=== PATIENT | male | born 1990 | race Caucasian/White ===

== ENCOUNTER 2020-09-03 03:13 | Emergency (ER) | payer BC, SELFPAY ==
--- NOTE | ~2020-09-03 | XR_ITS ---
EXAMINATION: XR chest 2V DATE: 09/03/2020 04:54 INDICATION: Cough. TECHNIQUE: Frontal and lateral views of the chest were obtained. COMPARISON: None. FINDINGS: The chest demonstrates clear lungs without pneumonia, pleural effusion, or pneumothorax. Th e heart size is normal. IMPRESSION: 1. No acute cardiopulmonary disease. Reviewed, dictated and finalized at location A.
[2020-09-03 03:18] VITALS: BP 154/90; PULSE 97; RESP 20; TEMP 36.2; O2SAT 100
--- NOTE | 2020-09-03 03:30 | ED.ANXIETY ---
HPI - Anxiety General Chief Complaint: Anxiety Stated Complaint: Anxiety attack Time Seen by Provider: 09/03/20 03:24 Source: patient Mode of arrival: ambulatory Limitations: no limitations History of Present Illness HPI narrative: Patient is a 30-year-old male complaining of panic attack , described as nausea and vomiting, not feeling well, shaky, having anxiety due to his upcoming vacation this Monday to [place], I am scared of flying . Patient also admits to getting drunk last night which could also attribute to his current anxiety state. Patient denies any chest pain, shortness of breath abdominal pain, fever or chills. Patient denies any suicidal homicidal thoughts. Related Data Allergies Allergy/AdvReac Type Severity Reaction Status Date / Time No Known Allergies Allergy Verified 09/03/20 03:14 Review of Systems Review of Systems: All systems reviewed & are unremarkable except as noted in HPI and below Constitutional: Constitutional: Denies body ache(s), Denies chills, Denies excessive sweating, Denies fatigue, Denies fever(s), Denies headache(s), Denies lethargy, Denies malaise, Denies weakness and Denies weight loss Eyes: Eyes: Denies blurry vision, Denies change in vision and Denies loss of vision ENT: Denies dizziness, Denies ear discharge, Denies headache(s), Denies lip swelling, Denies epistaxis, Denies nasal congestion, Denies neck pain, Denies throat swelling and Denies tongue swelling Cardiovascular: Cardiovascular: Denies chest pain, Denies chest pain at rest, Denies chest pain with activity, Denies diaphoresis, Denies rapid heart rate, Denies edema, Denies irregular heart rhythm, Denies lightheadedness, Denies palpitations, Denies dyspnea and Denies dyspnea on exertion Respiratory: Respiratory: Denies chest congestion, Denies cough, Denies hemoptysis, Denies dyspnea and Denies dyspnea on exertion Gastrointestinal: Gastrointestinal: Denies abdominal pain, Denies melena, Denies hematochezia, Denies diarrhea and Denies hematemesis Musculoskeletal: Musculoskeletal: Denies abnormal gait, Denies deformity, Denies joint swelling, Denies limited range of motion, Denies neck pain and Denies numbness Neurologic: Denies Abnormal speech present, Denies abnormal gait, Denies confusion, Denies dizziness, Denies headache(s), Denies focal weakness, Denies loss of vision, Denies numbness, Denies Other visual disturbances, Denies Sensory deficit (Neuro) and Denies weakness Psychiatric: Psychiatric: Denies confusion, Denies depression, Denies auditory hallucinations, Denies homicidal ideation and Denies suicidal ideation Endocrine: Endocrine: Denies cold intolerance, Denies excessive sweating, Denies fatigue, Denies heat intolerance and Denies palpitations Hematologic/Lymphatic: Hematologic/Lymphatic: Denies easy bleeding and Denies easy bruising Allergic/Immunologic: Allergic/Immunologic: Denies lip swelling, Denies throat swelling and Denies tongue swelling PMFSH Comments Past medical history: None Family history: Negative for coronary disease or MT. Social history: Non-smoker no EtOH or drug use Exam Const: General: cooperative, healthy appearing, comfortable, no acute distress, well developed, alert and awake; No confusion Orientation/consciousness: oriented to person, oriented to place, oriented to time, patient oriented x3 and No confusion Limitations: no limitations Other: Anxious HENMT: Head: normal to inspection, normocephalic and atraumatic Ears: hearing grossly normal bilaterally, TM normal on the right and TM normal on the left General nose exam: Normal external nose present, Normal nares present and No nasal discharge present Face and sinus: normal facial exam Mouth: Yes Normal oral and palatal mucosa present, Yes lip normal, Yes tongue normal and Yes oropharynx normal Throat: posterior oropharynx normal, tonsils normal and uvula midline Eyes: General: appearance normal, both eyes and all related structures Pup
[2020-09-03] MEDS: LORazepam (*CRX) 1 MG TABLET PO (03:36)
[2020-09-03 04:48] LABS: Basophils Absolute Auto 0.1 K/mm3 (0.0-0.1); Basophils Percent Auto 0.6 % (0.2-1.2); Eosinophils Percent Auto 0.4 % (0-4.4); Hematocrit 44.1 % (42.0-52.0); Hemoglobin 15.4 g/dL (14.0-18.0); Immature Granulocyte Absolute 0.03 K/mm3 (0.00-0.031); Immature Granulocyte Percent A 0.3 % (0-0.5); Lymphocytes Absolute Auto 1.68 K/mm3 (0.9-3.2); Lymphocytes Percent Auto 16.6 % (18.3-44.2); Mean Corpuscular HGB Conc 34.9 g/dl (32-36); Mean Corpuscular Volume 88.9 fl (80-100); Mean Platelet Volume 10.1 fl (7.4-10.4); Monocytes Absolute Auto 0.8 K/mm3 (0.1-0.6); Monocytes Percent Auto 8.1 % (2.6-8.5); Neutrophils Absolute Auto 7.5 K/mm3 (1.3-6.7); Platelet Count Result 247 k/mm3 (150-375); Red Blood Count 4.96 M/mm3 (4.6-6.20); Red Cell Distribution Width 12.4 % (11.5-14.5); White Blood Count 10.1 K/mm3 (4.5-10.0)
[2020-09-03 05:00] LABS: Lipase 44 U/L (23-300)
[2020-09-03 05:21] LABS: Troponin I < 0.012 ng/mL (0.000-0.034)
--- NOTE | 2020-09-03 05:24 | ECG_ITS ---
Measurements Intervals [place] Rate: 72 P: 74 [place]: 159 QRS: 46 QRSD: 93 T: 50 QT: 407 QTc: 448 Interpretive Statements SINUS RHYTHM NORMAL ECG Electronically Signed On 09-03-2020 7:17:11 CDT by Oswaldo Omalley D.O.
[2020-09-03 05:30] VITALS: BP 143/87; PULSE 88; RESP 18; O2SAT 99
[2020-09-03 06:05] VITALS: BP 141/83; PULSE 86; RESP 16; TEMP 36.7; O2SAT 98
== END 2020-09-03 06:05 | disposition home or self-care (01) ==
PROVIDERS: Emergency Provider Emergency Medicine; PCP Family Medicine
DX: F41.9 Anxiety disorder, unspecified (principal)
CPT/HCPCS: 36415; 71046; 83690; 84484; 85025; 93005; 99284; A9270

== ENCOUNTER 2021-06-11 00:29 | Emergency (ER) | payer BC, SELFPAY ==
[2021-06-11 00:35] VITALS: BP 171/107; PULSE 113; RESP 22; TEMP 36.6; O2SAT 99
--- NOTE | 2021-06-11 00:42 | ECG_ITS ---
Measurements Intervals [place] Rate: 87 P: 52 [place]: 153 QRS: 51 QRSD: 104 T: 57 QT: 390 QTc: 472 Interpretive Statements SINUS RHYTHM WITH SINUS ARRHYTHMIA NORMAL ECG Electronically Signed On 06-11-2021 6:49:56 [employer] by Oswaldo Omalley D.O.
[2021-06-11 01:01] LABS: Basophils Absolute Auto 0.1 K/mm3 (0.0-0.1); Basophils Percent Auto 0.5 % (0.2-1.2); Eosinophils Absolute Auto 0.1 K/mm3 (0-0.3); Eosinophils Percent Auto 1.1 % (0-4.4); Hematocrit 43.6 % (42.0-52.0); Hemoglobin 14.9 g/dL (14.0-18.0); Immature Granulocyte Absolute 0.03 K/mm3 (0.00-0.031); Immature Granulocyte Percent A 0.3 % (0-0.5); Lymphocytes Absolute Auto 2.65 K/mm3 (0.9-3.2); Lymphocytes Percent Auto 26.4 % (18.3-44.2); Mean Corpuscular HGB Conc 34.2 g/dl (32-36); Mean Corpuscular Hemoglobin 31.6 pg (26-34); Mean Corpuscular Volume 92.4 fl (80-100); Mean Platelet Volume 9.8 fl (7.4-10.4); Monocytes Absolute Auto 0.8 K/mm3 (0.1-0.6); Monocytes Percent Auto 7.6 % (2.6-8.5); Neutrophils Absolute Auto 6.4 K/mm3 (1.3-6.7); Neutrophils Percent Auto 64.1 % (45.5-73.1); Platelet Count Result 256 k/mm3 (150-375); Red Blood Count 4.72 M/mm3 (4.6-6.20)
[2021-06-11 01:09] LABS: Ethanol < 10 mg/dL (<10)
[2021-06-11 01:11] LABS: Alanine Aminotransferase 32 U/L (4-50); Albumin Level 4.4 g/dL (3.5-5.1); Alkaline Phosphatase 86 U/L (38-126); Anion Gap 11 mmol/L (8-16); Aspartate Amino Transferase 50 U/L (17-59); Blood Urea Nitrogen 12 mg/dL (9-20); Calcium 8.9 mg/dL (8.4-10.2); Carbon Dioxide 24 mmol/L (22-30); Chloride 99 mmol/L (98-107); Estimated CRCL calculation 152 ml/min; Estimated Glomerular Filt Rate > 60; Glucose 102 mg/dL (65-110); Potassium 3.1 mmol/L (3.4-5.0); Sodium 134 mmol/L (137-145)
[2021-06-11] MEDS: THIAMINE HCL INJ 100 MG, FOLIC ACID INJ 1 MG, MULTIVITAMINS-12 INJ VIAL 1 5 ML, MULTIVI... IV CONT (01:11)
[2021-06-11 01:17] LABS: INR 1.2; Prothrombin Time 14.6 Seconds (11.1-14.7)
[2021-06-11 01:18] LABS: Partial Thromboplastin Time 25.7 SECONDS (22.3-36.8)
--- NOTE | 2021-06-11 01:21 | ED.GENADULT ---
HPI - General Adult General Chief complaint: Altered Mental Status Stated complaint: AMS Time Seen by Provider: 06/11/21 00:43 Source: patient Mode of arrival: ambulatory Limitations: no limitations History of Present Illness HPI narrative: Patient is a 31-year-old male complaining of I do not feel right describes feeling anxious, shaking, unable to sleep tonight. Patient denies any headache, dizziness, speech or visual disturbance, focal weakness or numbness, unsteady gait, chest pain, shortness of breath, abdominal pain, nausea, vomiting, diarrhea, fever or chills. Patient admits to chronic alcohol use, drinks approximately 10-15 drinks per day since he was 20 years old. Patient states the last time he had drink was last night. Related Data Allergies Allergy/AdvReac Type Severity Reaction Status Date / Time No Known Allergies Allergy Verified 09/03/20 03:14 Review of Systems Review of Systems: All systems reviewed & are unremarkable except as noted in HPI and below Constitutional: Constitutional: Denies body ache(s), Denies chills, Denies excessive sweating, Denies fatigue, Denies fever(s), Denies headache(s), Denies lethargy, Denies malaise, Denies weakness and Denies weight loss Eyes: Eyes: Denies blurry vision, Denies change in vision and Denies loss of vision ENT: Denies dizziness, Denies ear discharge, Denies headache(s), Denies lip swelling, Denies epistaxis, Denies nasal congestion, Denies neck pain, Denies throat swelling and Denies tongue swelling Cardiovascular: Cardiovascular: Denies chest pain, Denies chest pain at rest, Denies chest pain with activity, Denies diaphoresis, Denies rapid heart rate, Denies edema, Denies irregular heart rhythm, Denies lightheadedness, Denies palpitations, Denies dyspnea and Denies dyspnea on exertion Respiratory: Respiratory: Denies chest congestion, Denies cough, Denies hemoptysis, Denies dyspnea and Denies dyspnea on exertion Gastrointestinal: Gastrointestinal: Denies abdominal pain, Denies melena, Denies hematochezia, Denies diarrhea, Denies nausea, Denies vomiting and Denies hematemesis Musculoskeletal: Musculoskeletal: Denies abnormal gait, Denies deformity, Denies joint swelling, Denies limited range of motion, Denies neck pain and Denies numbness Neurologic: Denies Abnormal speech present, Denies abnormal gait, Denies confusion, Denies dizziness, Denies headache(s), Denies focal weakness, Denies loss of vision, Denies numbness, Denies Other visual disturbances, Denies Sensory deficit (Neuro) and Denies weakness Psychiatric: Psychiatric: Denies confusion, Denies depression, Denies auditory hallucinations, Denies homicidal ideation and Denies suicidal ideation Endocrine: Endocrine: Denies cold intolerance, Denies excessive sweating, Denies fatigue, Denies heat intolerance and Denies palpitations Hematologic/Lymphatic: Hematologic/Lymphatic: Denies easy bleeding and Denies easy bruising Allergic/Immunologic: Allergic/Immunologic: Denies lip swelling, Denies throat swelling and Denies tongue swelling PMFSH Comments Past medical history: Alcoholism Family history: Unknown Social history: Positive for smoker, no drug use, daily EtOH use Exam Const: General: cooperative, healthy appearing, comfortable, no acute distress, well developed, alert and awake; No confusion Orientation/consciousness: oriented to person, oriented to place, oriented to time, patient oriented x3 and No confusion Limitations: no limitations Other: Anxious HENMT: Head: normal to inspection, normocephalic and atraumatic Ears: hearing grossly normal bilaterally, TM normal on the right and TM normal on the left General nose exam: Normal external nose present, Normal nares present and No nasal discharge present Face and sinus: normal facial exam Mouth: Yes Normal oral and palatal mucosa present, Yes lip normal, Yes tongue normal and Yes oropharynx normal Throat: posterior oropharynx normal, tonsils normal and uv
[2021-06-11] MEDS: LORazepam INJ (*CRX) 2 MG/ML VIAL 1 MG IV PUSH (01:37)
[2021-06-11] MEDS: POTASSIUM CHLORIDE 20 MEQ PACKET (FOR LIQUID) 40 MEQ PO (01:38)
[2021-06-11 01:42] VITALS: BP 157/101; PULSE 71; RESP 18; O2SAT 100
[2021-06-11] MEDS: LORazepam (*CRX) 1 MG TABLET PO (02:19)
[2021-06-11 02:20] VITALS: BP 141/90; PULSE 91; RESP 18; O2SAT 96
[2021-06-11 04:43] VITALS: BP 129/99; PULSE 65; RESP 18
[2021-06-11 06:08] VITALS: BP 139/101; PULSE 66; RESP 20; O2SAT 99
== END 2021-06-11 06:21 | disposition home or self-care (01) ==
PROVIDERS: Emergency Provider Emergency Medicine; PCP Family Medicine
DX: F10.239 Alcohol dependence with withdrawal, unspecified (principal); E87.6 Hypokalemia; F17.200 Nicotine dependence, unspecified, uncomplicated; Y90.0 Blood alcohol level of less than 20 mg/100 ml
CPT/HCPCS: 36415; 80053; 80307; 85025; 85610; 85730; 93005; 96365; 96366; 96375; 99284; A9270; J2060; J3411; J3475; J7121

== ENCOUNTER 2021-08-20 13:14 | Inpatient (IN) | payer BC, SELFPAY ==
[2021-08-20] VITALS (18 sets, daily range): BP systolic 137–159; BP diastolic 96–115; PULSE 53–87; RESP 15–30; TEMP 36.1–36.7; O2SAT 96–100; BMI 35.4
--- NOTE | ~2021-08-20 | CT_ITS ---
EXAMINATION: CT abdomen pelvis w con INDICATION: Abdominal pain, history of pancreatitis TECHNIQUE: Computed tomographic images of the abdomen and pelvis were obtained after the administrati on of 100 cc of Omnipaque 350 intravenous contrast. The dose-length product (DLP) was 1120.95 mGy-cm. Automated exposure control and iterative reconstruction technique were employed. COMPARISON: None available FINDINGS: The lung bases are clear. The heart size is normal. The liver, spleen, and adrenal glands a re normal. There is diffuse edema of the pancreas. There is peripancreatic fluid probably surrounding the head and body of the pancreas and tracking into right anterior perirenal space. The gallbladder is mildly distended. The kidneys are unremarkable. No pathologically enlarged abdominal or pelvic lym ph nodes are identified. There is no free intraperitoneal gas or evidence of bowel obstruction. The a ppendix is normal. IMPRESSION: 1. Findings consistent with acute pancreatitis, likely interstitial edematous. Mild gallbladder diste ntion is likely secondary to pancreatitis. Reviewed, dictated and finalized at location A. IMPRESSION: 1. Findings consistent with acute pancreatitis, likely interstitial edematous. Mild gallbladder distention is likely secondary to pancreatitis.
[2021-08-20 13:31] LABS: Basophils Percent Auto 0.5 % (0.2-1.2); Eosinophils Absolute Auto 0.1 K/mm3 (0-0.3); Eosinophils Percent Auto 0.8 % (0-4.4); Hematocrit 48.2 % (42.0-52.0); Hemoglobin 16.3 g/dL (14.0-18.0); Immature Granulocyte Absolute 0.02 K/mm3 (0.00-0.031); Immature Granulocyte Percent A 0.2 % (0-0.5); Lymphocytes Absolute Auto 1.34 K/mm3 (0.9-3.2); Lymphocytes Percent Auto 15.1 % (18.3-44.2); Mean Corpuscular HGB Conc 33.8 g/dl (32-36); Mean Corpuscular Hemoglobin 30.6 pg (26-34); Mean Corpuscular Volume 90.4 fl (80-100); Mean Platelet Volume 9.9 fl (7.4-10.4); Monocytes Absolute Auto 0.7 K/mm3 (0.1-0.6); Monocytes Percent Auto 7.5 % (2.6-8.5); Neutrophils Absolute Auto 6.7 K/mm3 (1.3-6.7); Neutrophils Percent Auto 75.9 % (45.5-73.1); Platelet Count Result 207 k/mm3 (150-375); Red Blood Count 5.33 M/mm3 (4.6-6.20); Red Cell Distribution Width 12.5 % (11.5-14.5); White Blood Count 8.9 K/mm3 (4.5-10.0)
[2021-08-20 13:40] LABS: Alanine Aminotransferase 34 U/L (4-50); Albumin Level 4.8 g/dL (3.5-5.1); Alkaline Phosphatase 86 U/L (38-126); Anion Gap 9 mmol/L (8-16); Aspartate Amino Transferase 51 U/L (17-59); Bilirubin,Total 2.4 mg/dL (0.2-1.3); Blood Urea Nitrogen 10 mg/dL (9-20); Calcium 9.2 mg/dL (8.4-10.2); Carbon Dioxide 27 mmol/L (22-30); Chloride 99 mmol/L (98-107); Estimated CRCL calculation 154 ml/min; Estimated Glomerular Filt Rate > 60; Glucose 112 mg/dL (65-110); Lipase 1251 U/L (23-300); Sodium 135 mmol/L (137-145)
--- NOTE | 2021-08-20 13:58 | ED.ABDPAIN ---
HPI - Abdominal Pain General Chief Complaint: Abdominal Pain Stated Complaint: abd pain Time Seen by Provider: 08/20/21 13:22 Source: patient and RN notes reviewed Mode of arrival: ambulatory Limitations: no limitations History of Present Illness HPI narrative: This is a 31 year old male with history of alcohol abuse and pancreatitis who presents for evaluation of abdominal pain. He developed pain yesterday . He states his pain is constant ache that is located across his upper abdomen. He has taken Pepto and ibuprofen without relief. He denies nausea and vomiting. He is having loose stools. He was diagnosed with pancreatitis in March and he was told it is due to his alcohol use. He drinks alcohol 6 out of 7 days a week. He last drank last night. He denies history of alcohol withdrawal. He reports his pain severity is 7/10. Related Data Home Medications Medication Instructions Recorded Confirmed esomeprazole magnesium [Nexium] 40 mg PO DAILY 08/20/21 08/20/21 Allergies Allergy/AdvReac Type Severity Reaction Status Date / Time No Known Allergies Allergy Verified 08/20/21 13:32 Review of Systems Review of Systems: All systems reviewed & are unremarkable except as noted in HPI and below PMFSH Past Medical History Medical History (Updated 08/20/21 @ 19:03 by Jen Jennings MD) Pancreatitis Surgical History Surgical History (Updated 08/20/21 @ 14:12 by Jen Jennings MD) No pertinent past surgical history Social History Social History (Updated 08/20/21 @ 16:51 by ABDIEL Dai) Social History: Patient lives in a basement. He was to be a full code at this time and his surrogate decision maker will be Yogi Jeannie. he does not have any pets. 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 Patient is a heavy drinker. patient stated that his dad recently has from liver failure which has exacerbated his drinking. 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 [employer] Gender identity (if verbalized by the patient): Male Sexual Orientation (if Verbalized by the Patient): Straight or Heterosexual Spiritual care concerns: No Agree to blood products: Yes Exam Const: General: no acute distress and alert Orientation/consciousness: patient oriented x3 Eyes: EOM: EOMs intact bilaterally Chest: Chest palpation & inspection: normal inspection of the chest Resp: Effort & Inspection: normal respiratory effort and no retractions Auscultation: clear to auscultation bilaterally Cardio: Rate: regular rate Rhythm: regular rhythm Heart sounds: no murmurs GI: GI Palp: Yes Soft to palpation, Yes Tenderness to palpation present (GI), No Guarding due to palpation present (GI) and No Rigid due to palpation Auscultation: normal bowel sounds Skin: General skin exam: normal color Neuro: General: patient oriented x3, moves all extremities and CN's II-XI intact bilaterally Psych: Mental Status: mental status grossly normal Affect: normal affect Course Reevaluation(s) Reevaluation #1: Patient understand he will be admitted. He states his pain is still 6/10 after pain medication. He agrees to admission. Date: 08/20/21 Time: 15:30 Consultations Consultation #1: I discussed case with DR. Russell. He accepts patient for pancreatitis. He will place alcohol withdrawal protocol on floor Date: 08/20/21 Time: 15:19 Vital Signs Vital signs: Vi
[2021-08-20] MEDS: ONDANSETRON INJ 4 MG/2 ML VIAL IV PUSH (14:18)
[2021-08-20] MEDS: HYDROmorphone HCL INJ (*CRX) 1 MG/ML SYR IV PUSH ×2 (14:18→21:00)
[2021-08-20] MEDS: SODIUM CHLORIDE 0.9% IV 1,000 ML 999 ML IV CONT (14:19)
[2021-08-20 14:43] LABS: Mucus Urine Rare /lpf; WBC Urine 0-3 /hpf
[2021-08-20 14:57] LABS: Add Urine Microscopic? YES; Appearance Urine Clear (Clear); Bilirubin Urine Negative (Negative); Blood Urine Trace-lysed (Negative); Color Urine Yellow (Yellow); Glucose Urine UA Negative (Negative); Ketones Urine Negative (Negative); Leukocyte Esterase Ur Negative LEU/UL (Negative); Nitrate Urine Negative (Negative); Protein Urine Negative (Negative); Urobilinogen Urine 0.2 mg/dL (<2.0); pH Urine 8.5 (5.0-9.0)
[2021-08-20] MEDS: HYDROmorphone HCL INJ (*CRX) 1 MG/ML SYR (15:58)
--- NOTE | 2021-08-20 16:11 | PM.IMHP ---
H&P: HPI History of Present Illness Date/Time: 08/20/21 16:11 Chief Complaint: epigastric pain Narrative: patient is a 31-year-old male with a past medical history of pancreatitis and alcohol abuse who presented to ED with complaints of epigastric pain that started afternoon. Patient was unable to sleep since having it started. He did try to take some Pepto and some Nexium with no relief. He stated that he knows he is was not supposed to have anything to drink however he did have a small drink which did not help his symptoms either. He denies any nausea, vomiting, chest pain, shortness a breath, sweats, fevers, chills, dizziness, headache, visual disturbances. He did state that he has been feeling very weak and experiencing some body aches. I did discuss with him about his blood pressure and he stated that his blood pressure has usually been pretty good however he does know that is something he probably needs to explore. I did go over with the patient about signs and symptoms of withdrawal. I explained to the patient seems to be open and honest with symptoms he may be feeling. patient is being admitted to the hospitalist service as inpatient Review of Systems Review of Systems: All systems reviewed & are unremarkable except as noted in HPI and below PMFSH Past Medical History Medical History (Updated 08/20/21 @ 16:14 by ABDIEL Dai) Pancreatitis Surgical History Surgical History (Updated 08/20/21 @ 14:12 by Jen Jennings MD) No pertinent past surgical history Social History Social History (Updated 08/20/21 @ 16:51 by ABDIEL Dai) Social History: Patient lives in a basement. He was to be a full code at this time and his surrogate decision maker will be Yogi Dennis. he does not have any pets. 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 Patient is a heavy drinker. patient stated that his dad recently has from liver failure which has exacerbated his drinking. 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 [employer] Gender identity (if verbalized by the patient): Male Sexual Orientation (if Verbalized by the Patient): Straight or Heterosexual Spiritual care concerns: No Agree to blood products: Yes Meds Home Medications and Allergies Home Medications Medication Instructions Recorded Confirmed Type esomeprazole magnesium [Nexium] 40 mg PO DAILY 08/20/21 08/20/21 History Allergies Allergy/AdvReac Type Severity Reaction Status Date / Time No Known Allergies Allergy Verified 08/20/21 13:32 Vital Signs Vital Signs - 24 hr 08/20/21 13:18 08/20/21 14:01 08/20/21 14:38 Temperature 96.9 F L Pulse Rate 76 66 76 Respiratory Rate 16 30 H 18 Blood Pressure 159/115 H 147/105 H Pulse Oximetry 100 100 99 08/20/21 14:45 Temperature Pulse Rate 75 Respiratory Rate 18 Blood Pressure Pulse Oximetry 99 Exam Const: General: cooperative, no acute distress, well developed, alert, awake, ill appearing, lethargic and tired appearing Nutritional Appearance: well nourished and overweight Orientation/consciousness: oriented to person, oriented to place, oriented to time and patient oriented x3 Limitations: no limitations HENMT: Head: normal to inspection Ears: hearing grossly normal bilaterally General nose exam: Normal external nose present Mouth: Yes Normal oral and palatal mucosa present, Yes li
--- NOTE | 2021-08-20 16:36 | PC.NURSE ---
hospitalist at bedside to assess pt.
[2021-08-20 16:59] LABS: Magnesium 1.7 mg/dL (1.6-2.3)
--- NOTE | 2021-08-20 17:17 | ADMGEN ---
This patient, Davey Jones, was admitted to [facility] Surg Room 329-01. Patient/family oriented to hospital policies and general routines including ID bracelet, bed and alarms, visiting hours, pain management, procedures, bathroom and other care routines, personal items, smoking policy, room service/diet, and visiting hours. Information on how to activate the Rapid Response Team has been discussed. Patient/Family are encouraged to report perceived risks to care and to ask questions if they do not understand what they are told or what they should do.
[2021-08-20] MEDS: SODIUM CHLORIDE 0.9% IV 1,000 ML 125 ML IV CONT (18:13)
[2021-08-20] MEDS: MORPHINE SULFATE (*CRX) 2 MG/ML INJ IV PUSH (18:21)
[2021-08-21] VITALS (7 sets, daily range): BP systolic 128–145; BP diastolic 91–98; PULSE 65–86; RESP 16–18; TEMP 36.2–36.8; O2SAT 98
[2021-08-21] MEDS: LORazepam INJ (*CRX) 2 MG/ML VIAL 1 MG IV PUSH (00:22)
[2021-08-21] MEDS: SODIUM CHLORIDE 0.9% IV 1,000 ML 125 ML IV CONT ×2 (02:56→10:26)
[2021-08-21] MEDS: HYDROmorphone HCL INJ (*CRX) 1 MG/ML SYR IV PUSH ×2 (02:57→08:02)
[2021-08-21 06:48] LABS: Basophils Percent Auto 0.4 % (0.2-1.2); Eosinophils Absolute Auto 0.3 K/mm3 (0-0.3); Eosinophils Percent Auto 4.6 % (0-4.4); Hematocrit 43.6 % (42.0-52.0); Immature Granulocyte Absolute 0.01 K/mm3 (0.00-0.031); Immature Granulocyte Percent A 0.1 % (0-0.5); Lymphocytes Absolute Auto 2.05 K/mm3 (0.9-3.2); Lymphocytes Percent Auto 30.3 % (18.3-44.2); Mean Corpuscular HGB Conc 34.4 g/dl (32-36); Mean Corpuscular Hemoglobin 31.1 pg (26-34); Mean Corpuscular Volume 90.3 fl (80-100); Mean Platelet Volume 10.7 fl (7.4-10.4); Monocytes Absolute Auto 0.6 K/mm3 (0.1-0.6); Neutrophils Absolute Auto 3.8 K/mm3 (1.3-6.7); Neutrophils Percent Auto 55.6 % (45.5-73.1); Platelet Count Result 172 k/mm3 (150-375); Red Blood Count 4.83 M/mm3 (4.6-6.20); Red Cell Distribution Width 12.4 % (11.5-14.5); White Blood Count 6.8 K/mm3 (4.5-10.0)
[2021-08-21 07:00] LABS: Alanine Aminotransferase 29 U/L (4-50); Albumin Level 4.3 g/dL (3.5-5.1); Alkaline Phosphatase 68 U/L (38-126); Anion Gap 9 mmol/L (8-16); Aspartate Amino Transferase 42 U/L (17-59); Bilirubin,Total 2.1 mg/dL (0.2-1.3); Blood Urea Nitrogen 6 mg/dL (9-20); Calcium 8.4 mg/dL (8.4-10.2); Carbon Dioxide 27 mmol/L (22-30); Chloride 99 mmol/L (98-107); Estimated CRCL calculation 153 ml/min; Estimated Glomerular Filt Rate > 60; Glucose 81 mg/dL (65-110); Lipase 894 U/L (23-300); Potassium 3.7 mmol/L (3.4-5.0); Sodium 135 mmol/L (137-145)
[2021-08-21] MEDS: FOLIC ACID 1 MG TABLET PO (08:02)
[2021-08-21] MEDS: ENOXAPARIN 40 MG/0.4 ML SYRINGE SUB-Q (08:02)
[2021-08-21] MEDS: THIAMINE HCL 100 MG TABLET PO (08:02)
--- NOTE | 2021-08-21 12:19 | PM.IMPN ---
Progress Note: A&P Assessment and Plan (1) Pancreatitis, alcoholic, acute: Qualifiers: Acute pancreatitis complication: unspecified Qualified Code(s): K85.20 - Alcohol induced acute pancreatitis without necrosis or infection Code(s): K85.20 - Alcohol induced acute pancreatitis without necrosis or infection Status: Acute Assessment and Plan: CT A/P Findings c/w acute pancreatitis 08/20: Lipase 1251, 08/21: 894 IV fluids, analgesics prn 08/21: clear liquids Trend labs (2) Alcohol abuse: Code(s): F10.10 - Alcohol abuse, uncomplicated Status: Acute Assessment and Plan: CIWA Librium and ativan Folic acid and thiamine Educated about entering MAT program (3) Hypertension: Qualifiers: Hypertension type: unspecified Qualified Code(s): I10 - Essential (primary) hypertension Code(s): I10 - Essential (primary) hypertension Status: Acute Assessment and Plan: BP reviewed and control adequate 08/21 Subjective Date/time seen: 08/21/21 12:19 Interval history: 08/21 visit: Pain decreased from 8/10 08/20 to 05/17 today. Epigastric. Tolerating ice chips. Wants to try clear liquids. Wants to go home 08/22. Denied n/v. Last drink 08/18 (2 days CERTIFIED MEDICAL ASST). 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 Admits to drinking more than 2 drinks per day on average. Review of Systems Review of Systems: All systems reviewed & are unremarkable except as noted in HPI and below Exam Narrative: HEENT: PERRL, sclerae nonicteric, pharyngeal mucosa pink and intact NECK: No JVD CHEST: Clear to auscultation. Normal effort. HEART: NL S1/S2, regular, no murmur ABDOMEN: BS+, soft, MILD EPIGASTRIC TENDERNESS, NO PALPABLE MASS EXTREMITIES: No cyanosis, edema, or clubbing NEUROLOGIC: CN intact and symmetric to inspection. MUSCULOSKELETAL: Tone and strength symmetric. PSYCH: Alert. Oriented to person, place, and time. Objective Data Vital Signs Vital Signs: Vital Signs - 24 hr 08/20/21 13:18 08/20/21 14:01 08/20/21 14:38 Temperature 96.9 F L Pulse Rate 76 66 76 Pulse Rate [Brachial] Respiratory Rate 16 30 H 18 Blood Pressure 159/115 H 147/105 H Pulse Oximetry 100 100 99 08/20/21 14:45 04/15/22 15:09 08/20/21 15:15 Temperature Pulse Rate 75 71 68 Pulse Rate [Brachial] Respiratory Rate 18 22 H 21 H Blood Pressure Pulse Oximetry 99 98 98 08/20/21 15:44 08/20/21 15:45 08/20/21 16:00 Temperature Pulse Rate 60 70 60 Pulse Rate [Brachial] Respiratory Rate 23 H 21 H 23 H Blood Pressure Pulse Oximetry 99 100 99 08/20/21 16:02 08/20/21 16:15 08/20/21 16:17 Temperature Pulse Rate 71 62 70 Pulse Rate [Brachial] Respiratory Rate 20 20 22 H Blood Pressure 143/101 H 152/106 H Pulse Oximetry 98 96 99 08/20/21 16:41 08/20/21 16:47 08/20/21 17:00 Temperature Pulse Rate 79 87 71 Pulse Rate [Brachial] Respiratory Rate 15 22 H 20 Blood Pressure Pulse Oximetry 98 99 99 08/20/21 17:17 08/20/21 17:52 08/20/21 22:00 Temperature 97.9 F 98.0 F Pulse Rate 53 L 66 Pulse Rate [Brachial] 53 L Respiratory Rate 18 17 Blood Pressure 150/96 H 137/99 H Pulse Oximetry 100 97 08/21/21 06:00 Temperature 97.6 F Pulse Rate 69 Pulse Rate [Brachial] Respiratory Rate 18 Blood Pressure 145/98 H Pulse Oximetry 98 Intake/Output Intake/Output: Intake & Output 08/18/21 08/19/21 08/20/21 08/21/21 23:59 23:59 23:59 23:59 Intake Total 1000 1900 Balance 1000 1900 Meds/Results Medications: Active Medications Generic Name Dose Route Start Last Admin Trade Name Freq PRN Reason Stop Dose Admin Acetaminophen 650 mg 08/20/21 16:53 Acetaminophen 325 Mg Tablet PO Q4H PRN Mild Pain (1-3) or Fever Hydrocodone Bitart/Acetaminophen 1 tab 08/20/21 15:35 Hydrocodone/Acetaminophen (*Crx) 5-325 Mg Tablet PO Q4H PRN Pain Rated 4-6 Hydrocodone Bitart/Acetaminophen 1 tab 08/20/21 16:53
[2021-08-21] MEDS: KCL 20MEQ/0.9% SOD CHL 1,000 ML 125 ML IV CONT (14:52)
[2021-08-22] VITALS: PULSE 75
[2021-08-22 04:00] VITALS: PULSE 80
[2021-08-22 05:38] VITALS: BP 140/91; PULSE 60; RESP 16; TEMP 36.2; O2SAT 100
[2021-08-22 05:56] LABS: Hematocrit 42.8 % (42.0-52.0); Hemoglobin 14.7 g/dL (14.0-18.0); Mean Corpuscular HGB Conc 34.3 g/dl (32-36); Mean Corpuscular Hemoglobin 30.8 pg (26-34); Mean Corpuscular Volume 89.7 fl (80-100); Mean Platelet Volume 10.6 fl (7.4-10.4); Platelet Count Result 159 k/mm3 (150-375); Red Blood Count 4.77 M/mm3 (4.6-6.20); White Blood Count 5.5 K/mm3 (4.5-10.0)
[2021-08-22 06:05] LABS: Alanine Aminotransferase 29 U/L (4-50); Alkaline Phosphatase 72 U/L (38-126); Anion Gap 8 mmol/L (8-16); Aspartate Amino Transferase 46 U/L (17-59); Bilirubin,Total 1.2 mg/dL (0.2-1.3); Blood Urea Nitrogen 4 mg/dL (9-20); Calcium 8.6 mg/dL (8.4-10.2); Carbon Dioxide 26 mmol/L (22-30); Chloride 102 mmol/L (98-107); Estimated CRCL calculation 174 ml/min; Estimated Glomerular Filt Rate > 60; Glucose 86 mg/dL (65-110); Lipase 310 U/L (23-300); Magnesium 1.8 mg/dL (1.6-2.3); Sodium 136 mmol/L (137-145)
[2021-08-22] MEDS: FOLIC ACID 1 MG TABLET PO (09:00)
[2021-08-22] MEDS: KCL 20MEQ/0.9% SOD CHL 1,000 ML 125 ML IV CONT ×2 (09:00)
[2021-08-22] MEDS: THIAMINE HCL 100 MG TABLET PO (09:00)
[2021-08-22] MEDS: ENOXAPARIN 40 MG/0.4 ML SYRINGE SUB-Q (09:01)
--- NOTE | 2021-08-22 12:51 | PM.DS ---
DS: Admitting Diagnosis Discharge Date Patient was seen and examined on August 22, 2021 Admitting Diagnosis Acute alcohol-induced pancreatitis DS: Discharge Diagnosis Discharge Diagnosis (1) Pancreatitis, alcoholic, acute: Qualifiers: Acute pancreatitis complication: unspecified Qualified Code(s): K85.20 - Alcohol induced acute pancreatitis without necrosis or infection Code(s): K85.20 - Alcohol induced acute pancreatitis without necrosis or infection Status: Acute Assessment and Plan: CT A/P Findings c/w acute pancreatitis 08/20: Lipase 1251, 08/21: 894 IV fluids, analgesics prn 08/21: clear liquids 08/22: Tolerated advance from full liquids to regular bland w/o sx's (2) Alcohol abuse: Code(s): F10.10 - Alcohol abuse, uncomplicated Status: Acute Assessment and Plan: CIWA Librium and ativan Folic acid and thiamine Educated about entering MAT program (3) Hypertension: Qualifiers: Hypertension type: unspecified Qualified Code(s): I10 - Essential (primary) hypertension Code(s): I10 - Essential (primary) hypertension Status: Acute Assessment and Plan: BP reviewed and control adequate 08/21 DS: Summary Hospital Course Reason for hospitalization: Abdominal pain Hospital Course: Admitted with abdominal pain lipase was elevated CT abdomen pelvis was consistent with acute interstitial pancreatitis. Patient was treated with bowel rest antiemetics analgesics and IV fluid. His lipase decreased 1200 range to 800 range to 300 range over the ensuing days from admission. He tolerated ice chips a 2nd day of hospitalization and was advanced from full liquids to bland regular low-fat diet on the day of discharge. He tolerated this well. His abdomen is once nontender. Bowel sounds were present and he wished to go home. Total bilirubin is elevated 2.4 at admission and normalized to 1.2 on day of discharge. Patient was given information outpatient treatment programs for alcohol abuse. He pledged to avoid drinking and to follow up ELAINE with 1 of these programs as well as to see his primary physician. Time Spent with Patient Time attestation: Total time spent providing and/or coordinating discharge services: Exam Narrative: HEENT: PERRL, sclerae nonicteric, pharyngeal mucosa pink and intact NECK: No JVD CHEST: Clear to auscultation. Normal effort. HEART: NL S1/S2, regular, no murmur ABDOMEN: BS+, soft, NO TENDERNESS, NO PALPABLE MASS EXTREMITIES: No cyanosis, edema, or clubbing NEUROLOGIC: CN intact and symmetric to inspection. MUSCULOSKELETAL: Tone and strength symmetric. PSYCH: Alert. Oriented to person, place, and time. DS: Data Data Completed and Pending Labs on day of discharge: Labs from last 24 hours 08/22/21 08/22/21 05:30 05:30 WBC 5.5 RBC 4.77 Hgb 14.7 Hct 42.8 MCV 89.7 MCH 30.8 MCHC 34.3 RDW 12.0 Plt Count 159 MPV 10.6 H Sodium 136 L Potassium 4.0 Chloride 102 Carbon Dioxide 26 Anion Gap 8 BUN 4 L Creatinine 0.70 Estim Creat Clear Calc 174 Estimated GFR > 60 Glucose 86 Calcium 8.6 Magnesium 1.8 Total Bilirubin 1.2 AST 46 ALT 29 Alkaline Phosphatase 72 Total Protein 8.0 Albumin 4.0 Lipase 310 H Discharge Plan Discharge Discharging Clinician: Luis Manuel Dial Patient Disposition: Home, Self-Care Activity: as tolerated Diet: regular Discharge Instructions: LOW FAT, BLAND FOODS ONLY Patient Instructions: How to Stop Smoking (GEN), Pancreatitis (GEN), Low Fat Diet (GEN) Stand Alone Forms: General Discharge Information Follow-up/Referrals: Luis Manuel Dial MD [Physician] - Call for Appointment (FOR TREATMENT OF ALCOHOL USE DISORDER) Jimy,Paul Jose MD [Primary Care Provider] - 1 Week Discharge Medications: Continued esomeprazole magnesium [Nexium] 40 mg Capsule,Delayed Release(Dr/Ec) 40 mg PO MARKY
== END 2021-08-22 13:25 | disposition home or self-care (01) | DRG 440 ==
LOC: ANHED 13:40 → ANH3MEDSUR 19:03
PROVIDERS: Emergency Medicine; Nurse Practitioner; Admitting Provider Family Medicine; Emergency Provider General Practice; PCP Family Medicine; Visit Provider Internal Medicine
DX: K85.20 Alcohol induced acute pancreatitis without necrosis or infection (principal); F10.10 Alcohol abuse, uncomplicated; I10 Essential (primary) hypertension; F17.210 Nicotine dependence, cigarettes, uncomplicated
CPT/HCPCS: 36415; 74177; 80053; 81001; 83690; 83735; 85025; 85027; 96361; 96374; 96375; 96376; 99285; A9270; G0378; J1170; J1650; J2060; J2270; J2405; J3480; J7030; Q9967